=== PATIENT | male | born 1990 | race African-American/Black ===

== ENCOUNTER 2018-04-29 17:25 | Emergency (ER) | payer OTHER ==
[~2018-04-29] VITALS: Ht 182.9 cm; Wt 85.7 kg
[2018-04-29] MEDS ORDERED: DIPHTH,PERTUSS(ACELL),TET TOX 0.5 ML DISP.SYRIN. VAX IM ONE (19:00)
[2018-04-29] MEDS ORDERED: AMOX1TAB61 PO (19:25)
--- NOTE | 2018-04-29 19:26 | PHYS DOC ---
Adult General Chief Complaint Chief Complaint: LACERATION/AVULSION HPI HPI Patient is a 27 year old AA male who presents to the emergency room with complaints of a laceration to the inferior and superior portions of his tongue. Patient states he was playing basketball when he was struck in the jaw by another player in bit his tongue. Patient does not know when his last tetanus shot was. He denies any difficulty swallowing, or shortness of breath. Review of Systems Review of Systems Constitutional: Denies fever or chills [] HENT: Denies nasal congestion or sore throat; see history of present illness [] Respiratory: Denies shortness of breath [] Integument: See history of present illness Neurologic: Denies headache Current Medications Current Medications Current Medications Medications (Trade) Dose Ordered Sig/Tika Start Time Stop Time Status Last Admin Dose Admin Diphtheria/ Tetanus/Acell Pertussis (Boostrix) 0.5 ml ONCE ONCE 04/29/18 19:00 04/29/18 19:01 UNV Physical Exam Physical Exam Constitutional: Well developed, well nourished, no acute distress, non-toxic appearance. [] HENT: Normocephalic, atraumatic, bilateral external ears normal, oropharynx moist, no oral exudates, nose normal; 2 cm laceration noted to superior surface of tongue, 1 cm laceration noted to inferior surface of tongue, both lacerations line up well when tongue in at rest without gaping. [] Eyes: conjunctiva normal, no discharge. [] Neck: Normal range of motion, no stridor. [] Lungs & Thorax: Respirations even and unlabored, no retractions, no respiratory distress Skin: Warm, dry, no erythema, no rash. [] Neurologic: Alert and oriented X 3, no focal deficits noted. [] Psychologic: Affect normal, judgement normal, mood normal. [] EKG EKG [] Radiology/Procedures Radiology/Procedures [] Course & Med Decision Making Course & Med Decision Making Pertinent Labs and Imaging studies reviewed. (See chart for details) dx: tongue lacerations Prescription for augmentin written. Pt encouraged to rinse mouth after eating or drinking anything. Avoid spicy, carbonated, and acidic foods/beverages. Soft diet recommended. Follow up with PCP as needed. Return to ER if symptoms worsen. [] Dragon Disclaimer Dragon Disclaimer This electronic medical record was generated, in whole or in part, using a voice recognition dictation system. Departure Departure Impression: Primary Impression: Laceration of tongue without complication Disposition: HOME, SELF-CARE Condition: STABLE Referrals: LALO DOUGLAS DO (PCP) Patient Instructions: Tongue Laceration, [id number] Additional Instructions: Rinse mouth after eating or drinking anything. Avoid spicy, carbonated, and acidic foods/beverages. Soft diet recommended. Follow up with PCP as needed. Return to ER if symptoms worsen. Scripts Amoxicillin/Potassium Clav (AUGMENTIN 875-125 TABLET) 1 Each Tablet 1 TAB PO BID, #14 TAB 0 Refills Prov: SMITHA JAIME APRN 04/29/18 Problem Qualifiers Primary Impression: Laceration of tongue without complication Encounter type: initial encounter Qualified Codes: S01.512A - Laceration without foreign body of oral cavity, initial encounter SMITHA JAIME ACLS NURSE Apr 29, 2018 19:26
[2018-04-29 19:45] VITALS: BP 133/78
== END 2018-04-29 19:58 | disposition home or self-care (01) ==
LOC: ER 17:25 → EEVIPCON 17:25 → ER 19:58
DX: S01.512A Laceration without foreign body of oral cavity, initial encounter (principal); W52.XXXA Crushed, pushed or stepped on by crowd or human stampede, initial encounter; Y93.67 Activity, basketball; Y92.89 Other specified places as the place of occurrence of the external cause; Y99.8 Other external cause status
CPT/HCPCS: 90471; 90715; 99283